=== PATIENT | male | born 1965 | race African-American/Black ===

== ENCOUNTER 2017-05-21 11:36 | Emergency (ER) | payer MEDICAID ==
[~2017-05-21] VITALS: Ht 175.3 cm; Wt 73.0 kg
[2017-05-21] MEDS ORDERED: KETOROLAC 60MG/2ML VIAL IM ONE (12:45)
[2017-05-21 14:27] VITALS: BP 147/98
== END 2017-05-21 14:29 | disposition home or self-care (01) ==
LOC: ER 12:12
DX: S82.141A Displaced bicondylar fracture of right tibia, initial encounter for closed fracture (principal); X58.XXXA Exposure to other specified factors, initial encounter; Y93.89 Activity, other specified; Y92.098 Other place in other non-institutional residence as the place of occurrence of the external cause; C76.51 Malignant neoplasm of right lower limb; Z88.0 Allergy status to penicillin; Z98.890 Other specified postprocedural states; E11.9 Type 2 diabetes mellitus without complications; Z72.0 Tobacco use
CPT/HCPCS: 29505; 73560; 96372; 99284; J1885